=== PATIENT | female | born 1970 | race Caucasian/White ===

== ENCOUNTER 2017-06-15 23:26 | Inpatient (IN) | payer OTHER ==
[~2017-06-15] VITALS: Ht 165.1 cm; Wt 100.0 kg
[2017-06-15 23:58] LABS: HEMATOCRIT 39.2 % (36.0-46.0); MCH 30.8 PG (29.0-34.0); MCHC 33.4 G/DL (30.0-36.0); MEAN PLAT.VOLUME 9.8 uM^3 (9.5-12.4); PLATELET COUNT 250 K/uL (156-360); RBC DIS.WIDTH-CV 13.3 % (11.8-14.6); RED BLOOD COUNT 4.26 M/uL (3.80-5.20); WHITE BLOOD COUNT 9.9 K/uL (4.1-10.2)
[2017-06-16 00:06] LABS: CHLORIDE 107 mEq/L (99-109); POTASSIUM 3.7 mEq/L (3.7-5.4); SODIUM 143 mEq/L (136-147)
[2017-06-16 00:07] LABS: GLUCOSE 112 mg/dL (70-99)
[2017-06-16 00:09] LABS: ANION GAP 11 MEQ/L (2-14)
[2017-06-16 00:12] LABS: UREA NITROGEN (BUN) 14 mg/dL (9-23)
[2017-06-16 00:14] LABS: GFR ESTIMATE (CALCULATED) > 59 mL/min/
[2017-06-16] MEDS ORDERED: WELLBUTRIN SR150 MG PO (01:49)
[2017-06-16] MEDS ORDERED: PAXIL20 MG PO (01:51)
[2017-06-16] MEDS ORDERED: EFFEXOR37.5 MG PO (01:51)
[2017-06-16] MEDS ORDERED: REMERON30 M2 PO (01:52)
[2017-06-16] MEDS ORDERED: ZOCOR10 MG PO (01:53)
[2017-06-16] MEDS ORDERED: FIORICET 50-301 EACH PO (01:54)
[2017-06-16] MEDS ORDERED: TOPAMAX25 MG PO (01:55)
[2017-06-16] MEDS ORDERED: HYZAAR 100-11 TABLET PO (01:56)
[2017-06-16 04:48] VITALS: BP 162/77
[2017-06-16 05:37] LABS: ADD MIUA? YES; BILIRUBIN NEGATIVE; BLOOD LARGE; COLOR YELLOW ((YELLOW)); GLUCOSE (STRIP) NEGATIVE; KETONES NEGATIVE; LEUKOCYTES NEGATIVE; NITRITE NEGATIVE; PROTEIN (STRIP) NEGATIVE; SPECIFIC GRAVITY 1.011 (1.000-1.030); UROBILINOGEN 0.2 MG/DL (0.2-1.0)
[2017-06-16 05:43] LABS: BACTERIA RARE /HPF; EPITHELIAL CELLS 1+ /HPF; MUCUS TRACE /LPF; RED BLOOD CELLS 0-5 /HPF (0-5); UCUL ADDED? NO; WHITE BLOOD CELLS 0-5 /HPF (0-5)
[2017-06-16 07:46] VITALS: BP 149/84
[2017-06-16 12:09] VITALS: BP 128/77
[2017-06-16 17:31] VITALS: BP 130/71
[2017-06-16 19:58] VITALS: BP 144/79
[2017-06-17] VITALS (7 sets, daily range): BP systolic 123–172; BP diastolic 67–91
[2017-06-17 07:15] LABS: MCH 30.9 PG (29.0-34.0); MCHC 33.4 G/DL (30.0-36.0); MCV 92.5 FL (83-99); MEAN PLAT.VOLUME 10.2 uM^3 (9.5-12.4); PLATELET COUNT 280 K/uL (156-360); RBC DIS.WIDTH-CV 13.5 % (11.8-14.6); RBC DIS.WIDTH-SD 45.5 % (39-53); RED BLOOD COUNT 4.11 M/uL (3.80-5.20); WHITE BLOOD COUNT 18.3 K/uL (4.1-10.2)
[2017-06-17 07:37] LABS: ANION GAP 6 MEQ/L (2-14); CHLORIDE 106 MEQ/L (99-109); GFR ESTIMATE (CALCULATED) > 59 mL/min/; GLUCOSE 140 mg/dL (70-99); POTASSIUM 4.1 MEQ/L (3.7-5.4); SAMPLE HEMOLYSIS CHECK 0; SAMPLE ICTERIC CHECK 0; SAMPLE LIPEMIA CHECK 0; SODIUM 141 MEQ/L (136-147); UREA NITROGEN (BUN) 14 mg/dL (9-23)
[2017-06-18 03:41] VITALS: BP 147/76
[2017-06-18 06:59] VITALS: BP 131/74
[2017-06-18 09:38] LABS: HEMATOCRIT 38.9 % (36.0-46.0); MCH 30.7 PG (29.0-34.0); MCHC 32.6 G/DL (30.0-36.0); PLATELET COUNT 283 K/uL (156-360); RBC DIS.WIDTH-CV 13.7 % (11.8-14.6); RED BLOOD COUNT 4.14 M/uL (3.80-5.20); WHITE BLOOD COUNT 15.4 K/uL (4.1-10.2)
[2017-06-18 11:07] VITALS: BP 145/78
[2017-06-18 15:12] VITALS: BP 139/76
[2017-06-18 19:35] VITALS: BP 156/75
[2017-06-18 23:28] VITALS: BP 160/79
[2017-06-19 07:31] LABS: EOSINOPHIL (%) 0 % (0-5); IMMATURE GRANULOCYTE (%) 1.3 % (0.0-0.7); IMMATURE GRANULOCYTE COUNT 0.2 K/uL; INSTRUMENT ABS NEUTROPHIL CT 9.9 K/uL; LYMPHOCYTE COUNT 2.2 K/uL (1.0-2.8); MCH 30.2 PG (29.0-34.0); MCHC 32.4 G/DL (30.0-36.0); MONOCYTE (%) 7.9 % (3-12); MONOCYTE COUNT 1.1 K/uL (0-0.8); NEUTROPHIL (%) 74.4 % (45-76); NEUTROPHIL COUNT 9.9 K/uL (1.8-6.4); PLATELET COUNT 267 K/uL (156-360); RBC DIS.WIDTH-CV 13.5 % (11.8-14.6); RED BLOOD COUNT 3.98 M/uL (3.80-5.20); WHITE BLOOD COUNT 13.3 K/uL (4.1-10.2)
[2017-06-19 07:32] VITALS: BP 180/88
[2017-06-19 08:06] LABS: ANION GAP 11 MEQ/L (2-14); CHLORIDE 104 MEQ/L (99-109); GFR ESTIMATE (CALCULATED) > 59 mL/min/; POTASSIUM 4.2 MEQ/L (3.7-5.4); SAMPLE HEMOLYSIS CHECK 1; SAMPLE ICTERIC CHECK 0; SAMPLE LIPEMIA CHECK 0; SODIUM 140 MEQ/L (136-147); UREA NITROGEN (BUN) 21 mg/dL (9-23)
[2017-06-19 08:09] LABS: GLUCOSE 97 mg/dL (70-99)
[2017-06-19 13:14] VITALS: BP 148/75
[2017-06-19 16:09] VITALS: BP 133/90
[2017-06-20 00:23] VITALS: BP 169/99
[2017-06-20 07:20] VITALS: BP 140/84
[2017-06-20] MEDS ORDERED: ADVAIR HFA120 INHAL1 IH (10:44)
[2017-06-20] MEDS ORDERED: LEVOFLOXACIN500 MG PO (10:44)
[2017-06-20] MEDS ORDERED: PREDNISONE20 MG PO (10:44)
[2017-06-20] MEDS ORDERED: DUONEB 2.5-0.5 M3 ML AEROSOL (10:44)
== END 2017-06-20 12:00 | disposition home or self-care (01) | DRG 190 ==
LOC: EME 23:26 → 2EASTP 06-16 02:10 → EDOF 06-16 02:10 → ENRESERV 06-16 02:11 → 2EASTP 06-16 04:23
PROVIDERS: Hospitalist
DX: J44.0 Chronic obstructive pulmonary disease with (acute) lower respiratory infection (principal); J20.9 Acute bronchitis, unspecified; J44.1 Chronic obstructive pulmonary disease with (acute) exacerbation; E78.5 Hyperlipidemia, unspecified; J18.9 Pneumonia, unspecified organism; F32.9 Major depressive disorder, single episode, unspecified; F41.9 Anxiety disorder, unspecified; E66.9 Obesity, unspecified; Z68.36 Body mass index [BMI] 36.0-36.9, adult; H91.90 Unspecified hearing loss, unspecified ear; I10 Essential (primary) hypertension; F17.200 Nicotine dependence, unspecified, uncomplicated
CPT/HCPCS: 71020; 80048; 81003; 83605; 85025; 85027; 87040; 87070; 87077; 87147; 87186; 87205; 94640; 94640 76; 94644; 94760; 99202; 99281; 99285; J1650; J1956; J2920; J2930; J7030; J7512

== ENCOUNTER 2017-06-24 20:45 | Inpatient (IN) | payer OTHER ==
[~2017-06-24] VITALS: Ht 162.6 cm; Wt 93.0 kg
[~2017-06-24 20:45] MED LIST: ADVAIR HFA120 INHAL1 IH; DUONEB 2.5-0.5 M3 ML AEROSOL; EFFEXOR37.5 MG PO; FIORICET 50-301 EACH PO; HYZAAR 100-11 TABLET PO; LEVOFLOXACIN500 MG PO; PAXIL20 MG PO; PREDNISONE20 MG PO; REMERON30 M2 PO; TOPAMAX25 MG PO; WELLBUTRIN SR150 MG PO; ZOCOR10 MG PO
[2017-06-24 22:01] LABS: MCH 30.5 PG (29.0-34.0); MCHC 33.2 G/DL (30.0-36.0); MCV 92.1 FL (83-99); MEAN PLAT.VOLUME 9.9 uM^3 (9.5-12.4); PLATELET COUNT 399 K/uL (156-360); RBC DIS.WIDTH-CV 13.5 % (11.8-14.6); RED BLOOD COUNT 4.78 M/uL (3.80-5.20); WHITE BLOOD COUNT 24.6 K/uL (4.1-10.2)
[2017-06-24 22:10] LABS: CHLORIDE 102 mEq/L (99-109); POTASSIUM 3.7 mEq/L (3.7-5.4); SODIUM 137 mEq/L (136-147)
[2017-06-24 22:12] LABS: GLUCOSE 106 mg/dL (70-99)
[2017-06-24 22:13] LABS: ANION GAP 12 MEQ/L (2-14)
[2017-06-24 22:15] LABS: GFR ESTIMATE (CALCULATED) > 59 mL/min/
[2017-06-24 22:23] LABS: UREA NITROGEN (BUN) 37 mg/dL (9-23)
[2017-06-25] MEDS ORDERED: ASMANEX HFA13 GM IH (01:17)
[2017-06-25 04:02] VITALS: BP 144/75
[2017-06-25 08:00] VITALS: BP 132/70
[2017-06-25 09:18] LABS: HEMATOCRIT 39.9 % (36.0-46.0); MCH 30.4 PG (29.0-34.0); MCHC 32.6 G/DL (30.0-36.0); MCV 93.2 FL (83-99); MEAN PLAT.VOLUME 10.3 uM^3 (9.5-12.4); PLATELET COUNT 319 K/uL (156-360); RBC DIS.WIDTH-CV 13.6 % (11.8-14.6); RBC DIS.WIDTH-SD 46.5 % (39-53); RED BLOOD COUNT 4.28 M/uL (3.80-5.20); WHITE BLOOD COUNT 17.8 K/uL (4.1-10.2)
[2017-06-25 09:34] LABS: ANION GAP 9 MEQ/L (2-14); CHLORIDE 100 MEQ/L (99-109); GFR ESTIMATE (CALCULATED) > 59 mL/min/; GLUCOSE 122 mg/dL (70-99); SAMPLE HEMOLYSIS CHECK 0; SAMPLE ICTERIC CHECK 0; SAMPLE LIPEMIA CHECK 0; SODIUM 133 MEQ/L (136-147); UREA NITROGEN (BUN) 32 mg/dL (9-23)
[2017-06-25 09:35] LABS: POTASSIUM 4.8 MEQ/L (3.7-5.4)
[2017-06-25 12:04] VITALS: BP 138/82
[2017-06-25 16:05] VITALS: BP 127/77
[2017-06-25 19:58] VITALS: BP 121/65
[2017-06-25 22:59] VITALS: BP 119/62
[2017-06-26 03:00] VITALS: BP 140/80
[2017-06-26 06:00] LABS: MCH 31.5 PG (29.0-34.0); MCHC 33.8 G/DL (30.0-36.0); MCV 93.5 FL (83-99); MEAN PLAT.VOLUME 10.2 uM^3 (9.5-12.4); PLATELET COUNT 309 K/uL (156-360); RBC DIS.WIDTH-CV 13.4 % (11.8-14.6); RBC DIS.WIDTH-SD 46.1 % (39-53); RED BLOOD COUNT 4.28 M/uL (3.80-5.20); WHITE BLOOD COUNT 20.8 K/uL (4.1-10.2)
[2017-06-26 06:23] LABS: ANION GAP 9 MEQ/L (2-14); CHLORIDE 102 MEQ/L (99-109); GFR ESTIMATE (CALCULATED) > 59 mL/min/; GLUCOSE 133 mg/dL (70-99); POTASSIUM 5.1 MEQ/L (3.7-5.4); SAMPLE HEMOLYSIS CHECK 0; SAMPLE ICTERIC CHECK 0; SAMPLE LIPEMIA CHECK 0; UREA NITROGEN (BUN) 30 mg/dL (9-23)
[2017-06-26 06:25] LABS: SODIUM 140 MEQ/L (136-147)
[2017-06-26 07:27] VITALS: BP 124/86
[2017-06-26 12:54] VITALS: BP 142/74
[2017-06-26 15:40] VITALS: BP 140/71
[2017-06-26 23:36] VITALS: BP 124/78
[2017-06-27 07:40] VITALS: BP 154/68
[2017-06-27 08:35] LABS: HEMATOCRIT 37.8 % (36.0-46.0); MCH 31.4 PG (29.0-34.0); MCHC 33.9 G/DL (30.0-36.0); MCV 92.9 FL (83-99); PLATELET COUNT 315 K/uL (156-360); RBC DIS.WIDTH-CV 13.7 % (11.8-14.6); RBC DIS.WIDTH-SD 46.5 % (39-53); RED BLOOD COUNT 4.07 M/uL (3.80-5.20); WHITE BLOOD COUNT 23.1 K/uL (4.1-10.2)
[2017-06-27 08:52] VITALS: BP 130/65
[2017-06-27 09:18] LABS: ANION GAP 11 MEQ/L (2-14); CHLORIDE 103 MEQ/L (99-109); GFR ESTIMATE (CALCULATED) > 59 mL/min/; GLUCOSE 148 mg/dL (70-99); SAMPLE HEMOLYSIS CHECK 0; SAMPLE ICTERIC CHECK 0; SAMPLE LIPEMIA CHECK 0; SODIUM 138 MEQ/L (136-147); UREA NITROGEN (BUN) 31 mg/dL (9-23)
[2017-06-27 15:46] VITALS: BP 146/78
[2017-06-27 19:13] LABS: TB AG-NIL <0.00 IU/mL (())
[2017-06-28 00:38] VITALS: BP 165/80
[2017-06-28 07:00] LABS: HEMATOCRIT 37.2 % (36.0-46.0); MCH 31.2 PG (29.0-34.0); MCHC 33.3 G/DL (30.0-36.0); MCV 93.7 FL (83-99); MEAN PLAT.VOLUME 10.3 uM^3 (9.5-12.4); PLATELET COUNT 287 K/uL (156-360); RBC DIS.WIDTH-CV 13.8 % (11.8-14.6); RBC DIS.WIDTH-SD 48.1 % (39-53); RED BLOOD COUNT 3.97 M/uL (3.80-5.20); WHITE BLOOD COUNT 22.7 K/uL (4.1-10.2)
[2017-06-28 07:49] VITALS: BP 182/100
[2017-06-28] MEDS ORDERED: HYZAAR 100-21 TABLET PO (12:02)
[2017-06-28] MEDS ORDERED: PREDNISONE20 MG PO (12:11)
[2017-06-28] MEDS ORDERED: ACETAMINOPHEN-1 EAC1 PO (12:11)
[2017-06-28] MEDS ORDERED: MUCINEX DM ER1 EACH PO (12:13)
[2017-06-28 15:21] VITALS: BP 150/88
[2017-06-28] MEDS ORDERED: SPIRIVA RESPIMAT4 GM IH (16:09)
== END 2017-06-28 17:03 | disposition home or self-care (01) | DRG 190 ==
LOC: EME 20:45 → EDOF 06-25 02:45 → ENRESERV 06-25 02:47 → 5EAST 06-25 03:46 → CANRESERV 06-25 04:21 → ENRESERV 06-25 04:21 → 5EAST 06-25 06:31
PROVIDERS: Emergency Medicine; Hospitalist; Internal Medicine; Physician Assistant
DX: J44.0 Chronic obstructive pulmonary disease with (acute) lower respiratory infection (principal); J15.211 Pneumonia due to Methicillin susceptible Staphylococcus aureus; J44.1 Chronic obstructive pulmonary disease with (acute) exacerbation; R09.1 Pleurisy; J98.11 Atelectasis; I10 Essential (primary) hypertension; Z68.35 Body mass index [BMI] 35.0-35.9, adult; E66.9 Obesity, unspecified; F32.9 Major depressive disorder, single episode, unspecified; T38.0X5A Adverse effect of glucocorticoids and synthetic analogues, initial encounter; H91.90 Unspecified hearing loss, unspecified ear; Z82.3 Family history of stroke; Z87.891 Personal history of nicotine dependence; Z88.0 Allergy status to penicillin
CPT/HCPCS: 71020; 71275; 80048; 83605; 85027; 86480 90; 87040; 87116; 87206; 93005; 93306; 94640; 94640 76; 99202; 99281; 99285; J0696; J1100; J1644; J1885; J1956; J2920; J2930; J3370; J7050; J7512

== ENCOUNTER 2017-07-04 21:35 | Emergency (ER) | payer OTHER ==
[~2017-07-04] VITALS: Ht 162.6 cm; Wt 92.4 kg
[~2017-07-04 21:35] MED LIST changes: +ACETAMINOPHEN-1 EAC1 PO; +ASMANEX HFA13 GM IH; +HYZAAR 100-21 TABLET PO; +MUCINEX DM ER1 EACH PO; +SPIRIVA RESPIMAT4 GM IH
[2017-07-05] MEDS ORDERED: PERCOCET 5/31 TABLET PO (00:37)
[2017-07-05 00:42] VITALS: BP 143/104
== END 2017-07-05 00:55 | disposition home or self-care (01) ==
LOC: EME 21:35
DX: S83.92XA Sprain of unspecified site of left knee, initial encounter (principal); W06.XXXA Fall from bed, initial encounter; Z88.0 Allergy status to penicillin; I10 Essential (primary) hypertension
CPT/HCPCS: 73564; 99281; 99284

== ENCOUNTER 2017-10-13 15:52 | Emergency (ER) | payer OTHER ==
[~2017-10-13] VITALS: Ht 160 cm; Wt 104.7 kg
[~2017-10-13 15:52] MED LIST changes: +PERCOCET 5/31 TABLET PO
[2017-10-13 16:37] LABS: HEMATOCRIT 42.4 % (36.0-46.0); HEMOGLOBIN 14.6 G/DL (11.9-15.5); MCHC 34.4 G/DL (30.0-36.0); PLATELET COUNT 317 K/uL (156-360); RBC DIS.WIDTH-CV 12.4 % (11.8-14.6); RBC DIS.WIDTH-SD 41.1 % (39-53); RED BLOOD COUNT 4.71 M/uL (3.80-5.20); WHITE BLOOD COUNT 11.1 K/uL (4.1-10.2)
[2017-10-13 16:45] LABS: CHLORIDE 106 mEq/L (99-109); POTASSIUM 3.7 mEq/L (3.7-5.4); SODIUM 139 mEq/L (136-147)
[2017-10-13 16:47] LABS: GLUCOSE 87 mg/dL (70-99)
[2017-10-13 16:51] LABS: CREATININE 0.9 mg/dL (0.6-1.3); GFR ESTIMATE (CALCULATED) > 59 mL/min/
[2017-10-13 16:52] LABS: UREA NITROGEN (BUN) 18 mg/dL (9-23)
[2017-10-13 16:59] LABS: TROP-I INTERPRETATION NEGATIVE; TROPONIN-I < 0.01 ng/mL (0.0-0.30)
[2017-10-13] MEDS ORDERED: FLEXERIL10 MG PO (18:14)
[2017-10-13] MEDS ORDERED: PREDNISONE20 MG PO (18:16)
[2017-10-13] MEDS ORDERED: LIDODERM 5% P1 PATCH TD (18:18)
[2017-10-13 20:13] LABS: TROP-I INTERPRETATION NEGATIVE; TROPONIN-I < 0.01 ng/mL (0.0-0.30)
[2017-10-13 20:38] VITALS: BP 141/87
== END 2017-10-13 21:00 | disposition home or self-care (01) ==
LOC: EME 15:52
PROVIDERS: Nurse Practitioner Family
DX: M79.622 Pain in left upper arm (principal); M62.838 Other muscle spasm; J44.9 Chronic obstructive pulmonary disease, unspecified; I10 Essential (primary) hypertension; F32.9 Major depressive disorder, single episode, unspecified; F41.9 Anxiety disorder, unspecified; Z88.0 Allergy status to penicillin
CPT/HCPCS: 71046; 80048; 84484; 85027; 93005; 99281; 99284; J7512

== ENCOUNTER → 2018-05-07 | Outpatient (CLI) | payer OTHER ==
[~2018-05-07] MED LIST changes: +FLEXERIL10 MG PO; +LIDODERM 5% P1 PATCH TD
== END | disposition home or self-care (01) ==
LOC: RES 08:00
DX: Z02.71 Encounter for disability determination (principal)
CPT/HCPCS: 94060; 94729; 94760